=== PATIENT | female | born 1980 | race Caucasian/White ===

== ENCOUNTER 2018-01-12 11:37 | Emergency (ER) | payer BC ==
[~2018-01-12] VITALS: Ht 160 cm; Wt 102.1 kg
[~2018-01-12 11:37] MED LIST: BISA-49 PO; DOCU-131 PO; FERR325T18 PO; FERR325T63 PO; IBUP-1223 PO; LYSTEDA; OXYC-302 PO; SIME80TA16 PO
[2018-01-12 11:38] VITALS: BP 118/83
== END 2018-01-12 12:32 | disposition home or self-care (01) ==
LOC: ED 12:15
DX: L02.11 Cutaneous abscess of neck (principal)
CPT/HCPCS: 99283

== ENCOUNTER 2018-02-13 18:47 | Emergency (ER) | payer BC ==
[~2018-02-13] VITALS: Ht 162.6 cm; Wt 103.1 kg
[2018-02-13 18:52] VITALS: BP 130/85
== END 2018-02-13 20:13 | disposition home or self-care (01) ==
LOC: ED 19:45
DX: K08.89 Other specified disorders of teeth and supporting structures (principal); K05.00 Acute gingivitis, plaque induced; Z88.5 Allergy status to narcotic agent
CPT/HCPCS: 99283

== ENCOUNTER 2018-08-21 12:05 | Emergency (ER) | payer OTHER, BC ==
[~2018-08-21] VITALS: Ht 162.6 cm; Wt 103.1 kg
[2018-08-21 12:28] VITALS: BP 108/84
[2018-08-21] MEDS ORDERED: SILVER SULF. CRM 1% , 25GM ONE (12:50)
[2018-08-21] MEDS ORDERED: SILVER SULF. CRM 1% , 25GM TP ONE (13:00)
== END 2018-08-21 13:30 | disposition home or self-care (01) ==
LOC: ED 13:10
DX: T22.111A Burn of first degree of right forearm, initial encounter (principal); T23.161A Burn of first degree of back of right hand, initial encounter; T31.0 Burns involving less than 10% of body surface; X10.2XXA Contact with fats and cooking oils, initial encounter; Y93.89 Activity, other specified; Y99.0 Civilian activity done for income or pay; Y92.69 Other specified industrial and construction area as the place of occurrence of the external cause
CPT/HCPCS: 99283

== ENCOUNTER 2019-01-19 11:02 | Emergency (ER) | payer BC, OTHER ==
[~2019-01-19] VITALS: Ht 160 cm; Wt 104.0 kg
[2019-01-19 11:03] VITALS: BP 128/74
== END 2019-01-19 12:03 | disposition home or self-care (01) ==
LOC: ED 11:55
DX: G89.29 Other chronic pain (principal); M75.31 Calcific tendinitis of right shoulder; R05 Cough
CPT/HCPCS: 71046; 99283

== ENCOUNTER 2019-01-21 21:08 | Emergency (ER) | payer OTHER ==
[~2019-01-21] VITALS: Ht 160 cm; Wt 105.6 kg
[2019-01-21 21:15] VITALS: BP 134/85
== END 2019-01-21 22:27 | disposition home or self-care (01) ==
LOC: ED 22:12
DX: M75.31 Calcific tendinitis of right shoulder (principal); Z90.710 Acquired absence of both cervix and uterus
CPT/HCPCS: 99283

== ENCOUNTER 2019-06-15 13:31 | Emergency (ER) | payer SELFPAY ==
[~2019-06-15] VITALS: Ht 162.6 cm; Wt 109.0 kg
[2019-06-15 15:17] VITALS: BP 111/68
== END 2019-06-15 15:19 | disposition home or self-care (01) ==
LOC: ED 15:08
DX: R07.89 Other chest pain (principal); Z90.710 Acquired absence of both cervix and uterus
CPT/HCPCS: 36415; 71045; 80053; 83690; 84484; 85025; 93005; 99284

== ENCOUNTER 2019-08-25 20:19 | Emergency (ER) | payer MEDICAID ==
[~2019-08-25] VITALS: Ht 162.6 cm; Wt 100.0 kg
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
[2019-08-25] MEDS ORDERED: IBUPROFEN 600 MG TABLET ONE (20:43)
[2019-08-25] MEDS ORDERED: METHOCARBAMOL 500 MG TABLET ONE (20:43)
[2019-08-25] MEDS ORDERED: IBUPROFEN 200 MG TABLET PO ONE (21:00)
[2019-08-25] MEDS ORDERED: METHOCARBAMOL 500 MG TABLET PO ONE (21:00)
--- NOTE | 2019-08-25 21:02 | NUR ---
C-COLLAR REMOVED BY DR. FANG AT TIME OF ASSESSMENT. PER DR. FANG, OK TO LEAVE OFF.
--- NOTE | 2019-08-25 21:02 | NUR ---
PT MEDICATED PER MAR. TOLERATED WELL.
--- NOTE | 2019-08-25 21:10 | NUR ---
PT RESTING IN ROOM WITH FAMILY AT BS AND LIGHTS DIMMED. WARM BLANKET PROVIDED. VSS. NO NEEDS EXPRESSED. CALL LIGHT WITHIN REACH. ALL RESULTS BACK AT THIS TIME CHART UP FOR RECHECK.
[2019-08-25 21:11] VITALS: BP 143/89
--- NOTE | 2019-08-25 21:15 | NUR ---
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
== END 2019-08-25 21:40 | disposition home or self-care (01) ==
LOC: ED 21:34
DX: S16.1XXA Strain of muscle, fascia and tendon at neck level, initial encounter (principal); Z90.710 Acquired absence of both cervix and uterus; V49.9XXA Car occupant (driver) (passenger) injured in unspecified traffic accident, initial encounter; Y93.89 Activity, other specified; Y92.410 Unspecified street and highway as the place of occurrence of the external cause; Y99.8 Other external cause status
CPT/HCPCS: 72125; 99284

== ENCOUNTER 2020-03-13 08:58 | Day surgery (SDC) | payer MEDICAID ==
[~2020-03-13] VITALS: Ht 160 cm; Wt 104.0 kg
[2020-03-13] MEDS ORDERED: SODIUM CHLORIDE 0.9% 1,000 ML IV ONE ×2 (10:09→14:19)
[2020-03-13] MEDS ORDERED: HYDROmorphone 2 MG/ML, 1ML ONE ×2 (10:14→12:42)
[2020-03-13] MEDS ORDERED: ONDANSETRON 2MG/ML, 2ML ONE ×4 (10:14→15:06)
[2020-03-13] MEDS: HYDROmorphone 2 MG/ML, 1ML IVPush PRN ×2 (10:25→12:53)
--- NOTE | 2020-03-13 10:25 | NUR ---
c/o ruq pain intermittent w/ nausea and vomiting since mon. 7 yrs ago was told to get gall bladder out. denies recent etoh/fatty diet. piv est labs sent ua sent meds per dec. call diaz in reach. as
[2020-03-13] MEDS ORDERED: SODIUM CHLORIDE 0.9% 1,000ML IVBOLUS ONE (10:30)
[2020-03-13] MEDS ORDERED: ONDANSETRON 2MG/ML, 2ML IVPush ONE ×3 (10:30→14:30)
[2020-03-13] MEDS ORDERED: SODIUM CHLORIDE FLUSH 10ML SYR IVF ONE (10:30)
[2020-03-13 10:32] LABS: BASOPHILS # (AUTO) 0.06 x10^3/uL (0-0.1); BASOPHILS % (AUTO) 1 % (0-1); EOSINOPHILS % (AUTO) 1 % (1-7); LYMPHOCYTES # (AUTO) 1.58 x10^3/uL (1-3.4); LYMPHOCYTES % (AUTO) 17 % (22-44); MD NO; MEAN CORPUSCULAR HEMOGLOBIN 26.4 pg (27.0-34.8); MEAN CORPUSCULAR HGB CONC 32.2 g/dL (32.4-35.8); MEAN CORPUSCULAR VOLUME 81.9 fL (80-100); MEAN PLATELET VOLUME 8.7 fL (7.4-10.4); MONOCYTES # (AUTO) 0.33 x10^3/uL (0.2-0.8); MONOCYTES % (AUTO) 4 % (2-9); NEUTROPHILS # (AUTO) 7.19 x10^3/uL (1.8-6.8); NEUTROPHILS % (AUTO) 78 % (42-75); PLATELET COUNT 301 x10^3/uL (130-400); RED BLOOD COUNT 5.54 x10^6/uL (3.82-5.3); RED CELL DISTRIBUTION WIDTH 15.9 % (9.6-15.2)
[2020-03-13 10:37] LABS: MICROSCOPIC INDICATED
[2020-03-13 10:44] LABS: ALANINE AMINOTRANSFERASE 75 U/L (12-78); ALBUMIN 3.8 g/dL (3.4-5.0); ANION GAP 7 mmol/L (5-15); CALCIUM 10.4 mg/dL (8.5-10.1); CHLORIDE 105 mmol/L (98-107); CREATININE 1.21 mg/dL (0.55-1.02)
[2020-03-13 10:48] LABS: ALKALINE PHOSPHATASE 118 U/L (45-117); TOTAL PROTEIN 9.2 g/dL (6.4-8.2)
--- NOTE | 2020-03-13 11:20 | NUR ---
pt resting on stretcher pain improved us pending. as
--- NOTE | 2020-03-13 11:34 | NUR ---
claribel in room for update. remedicated for nausea. gall stones on us. call diaz in reach. plan pending, need to control pt nausea. as
[2020-03-13] MEDS ORDERED: PROMETHAZINE 25 MG/ML, 1ML ONE (11:53)
[2020-03-13] MEDS ORDERED: PROMETHAZINE 25 MG/ML, 1ML IM ONE (12:00)
--- NOTE | 2020-03-13 12:06 | NUR ---
pt shaking, c/o pain/nausea, refusing pain meds. given phenergan im and ice pack. sister at bedside, updated. as
[2020-03-13] MEDS ORDERED: METOCLOPRAMIDE 5 MG/ML, 2ML ONE (12:26)
[2020-03-13] MEDS ORDERED: METOCLOPRAMIDE 5 MG/ML, 2ML IVPush ONE (12:30)
--- NOTE | 2020-03-13 12:53 | NUR ---
pt sts nausea slightly improved, 2nd dose dilaudid. as
--- NOTE | 2020-03-13 13:14 | NUR ---
discussed poc w/ dr sanford. pt resting calmly on stretcher after dilaudid. no vomiting noted. pt has had the same emesis bag throughout stay, is just dry heaving loudly. sister at bedside. poc at moment: let pt rest after pain meds then have claribel discuss poc w/ pt. as
--- NOTE | 2020-03-13 13:52 | NUR ---
report to venita morales rn. as
--- NOTE | 2020-03-13 13:54 | NUR ---
REPORT FROM TRISTEN JOHNSON. PT CARE RESPONSIBILITIES ASSUMED.
--- NOTE | 2020-03-13 14:07 | NUR ---
PT STATES SHE IS STILL NAUSEOUS AND IN PAIN. ERP MADE AWARE. PT DENIES ANY FURTHER NEEDS OR CONCERNS AT THIS TIME, CALL LIGHT IN REACH.
[2020-03-13] MEDS ORDERED: SODIUM CHLORIDE FLUSH 10ML SYR IVF PRN (14:30)
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
[2020-03-13] MEDS ORDERED: CHLORHEXIDINE 15 ML UDC ONE (14:54)
[2020-03-13] MEDS ORDERED: BUPIVACAINE/PF-EPI 0.5% 1:200K ONE (14:54)
[2020-03-13] MEDS ORDERED: MIDAZOLAM 1 MG/ML, 2ML ONE (14:59)
[2020-03-13] MEDS ORDERED: FENTANYL PF 250 MCG/5ML ONE (14:59)
[2020-03-13] MEDS ORDERED: ROCURONIUM 10MG/ML,5ML ONE (15:00)
[2020-03-13] MEDS ORDERED: SUCCINYLCHOLINE 20 MG/ML, 10ML ONE (15:00)
[2020-03-13] MEDS ORDERED: PROPOFOL 10 MG/ML, 20ML ONE (15:00)
[2020-03-13] MEDS ORDERED: DEXAMETHASONE 4 MG/ML, 1ML ONE (15:06)
[2020-03-13] MEDS ORDERED: CEFOTETAN 2 GM ONE (15:06)
[2020-03-13] MEDS ORDERED: BUPIVACAINE/PF-EPI 0.5% 1:200K INFIL ONE (15:29)
[2020-03-13] MEDS ORDERED: DIAZEPAM 5 MG/ML, 2ML IVPush PRN (15:30)
[2020-03-13] MEDS ORDERED: LABETALOL 5MG/ML, 20ML IV PRN (15:30)
[2020-03-13] MEDS ORDERED: MEPERIDINE/PF 25MG/0.5ML IVPush PRN (15:30)
[2020-03-13] MEDS ORDERED: OXYcodone 5 MG/5 ML ORAL.SOL UDC PO PRN (15:30)
[2020-03-13] MEDS ORDERED: FENTANYL PF 100 MCG/2ML IV PRN (15:30)
[2020-03-13] MEDS ORDERED: hydrALAzine 20 MG/ML, 1ML IV PRN (15:30)
[2020-03-13] MEDS ORDERED: DIPHENHYDRAMINE 50 MG/ML, 1ML IVPush PRN (15:30)
[2020-03-13] MEDS ORDERED: ONDANSETRON 2MG/ML, 2ML IVPush PRN (15:30)
[2020-03-13] MEDS ORDERED: MIDAZOLAM 1 MG/ML, 2ML IV PRN (15:30)
[2020-03-13] MEDS ORDERED: PROMETHAZINE 12.5 MG SUPP PR PRN (15:30)
[2020-03-13] MEDS ORDERED: EPHEDRINE 50 MG/ML, 1ML IVPush PRN (15:30)
[2020-03-13] MEDS ORDERED: HYDROmorphone 1 MG/ML, 1ML INJ IVPush PRN (15:30)
[2020-03-13] MEDS ORDERED: PROMETHAZINE 25 MG/ML, 1ML IVPush PRN (15:30)
[2020-03-13] MEDS ORDERED: ALBUTEROL SULFATE 2.5 MG/3 ML NPPB PRN (15:30)
[2020-03-13] MEDS ORDERED: SUGAMMADEX 200 MG/2 ML IVPush ONE (15:37)
[2020-03-13] MEDS ORDERED: FENTANYL PF 100 MCG/2ML ONE (15:40)
[2020-03-13] MEDS ORDERED: MEPERIDINE/PF 100 MG/ML ONE (16:23)
[2020-03-13] MEDS ORDERED: OXYcodone 5 MG/5 ML ORAL.SOL UDC ONE (16:24)
[2020-03-13 17:28] VITALS: BP 123/84
[2020-03-13 17:33] VITALS: BP 123/84
[2020-03-13] MEDS ORDERED: OXYC-302 PO (18:13)
[2020-03-13] MEDS ORDERED: POLY17PO5 PO (18:14)
[2020-03-13] MEDS ORDERED: ONDA4TAB7 PO (18:16)
[2020-03-13 19:00] VITALS: BP 129/84
[2020-03-13 19:50] VITALS: BP 127/82
== END 2020-03-13 19:55 | disposition home or self-care (01) ==
LOC: OR 14:24 → EDSTATUS 14:30 → UNDOADMIN 14:48 → EDIP 14:48 → 4NE 17:35 → EDIP 17:35 → OR 19:55 → UNDODISIN 19:55
PROVIDERS: ATTEND Emergency Medicine
DX: K80.12 Calculus of gallbladder with acute and chronic cholecystitis without obstruction (principal); E66.01 Morbid (severe) obesity due to excess calories; Z88.5 Allergy status to narcotic agent; Z90.711 Acquired absence of uterus with remaining cervical stump
CPT/HCPCS: 36415; 47562; 76700; 80053; 81001; 82962; 83690; 84703; 85025; 87086; 88304; 99285; J0330; J1100; J1170; J2175; J2250; J2405; J2550; J2704; J2765; J3010; J3490; J7030; G0378

== ENCOUNTER 2021-06-29 11:30 | Emergency (ER) | payer MEDICAID, OTHER ==
[~2021-06-29] VITALS: Ht 160 cm; Wt 99.3 kg
[~2021-06-29 11:30] MED LIST changes: +ONDA4TAB7 PO; -OXYC-302 PO; +OXYC1TAB12 PO; +POLY17PO5 PO
[2021-06-29 11:34] VITALS: BP 145/89
[2021-06-29] MEDS ORDERED: KETOROLAC 30 MG/1 ML IM ONE (13:00)
--- NOTE | 2021-06-29 13:01 | NUR ---
LIBRARY INFORMATION TECHNICIAN: PT TO ROOM FROM CHRISTIANO RIVERO
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
[2021-06-29] MEDS ORDERED: KETOROLAC 30 MG/1 ML ONE (13:25)
--- NOTE | 2021-06-29 13:52 | NUR ---
RECEIVED REPORT FROM SHARONDA RAMON. TRANSFER OF CARE.
--- NOTE | 2021-06-29 14:08 | NUR ---
Patient/Caregiver given discharge instructions and they have confirmed that they understand the instructions. Patient ambulatory with steady gait. NAD, all questions answered appropriately, denies additional needs at this time. No personal belongings left in room after discharge.
== END 2021-06-29 14:10 | disposition home or self-care (01) ==
LOC: ED 13:45
DX: M75.31 Calcific tendinitis of right shoulder (principal)
CPT/HCPCS: 73030; 96372; 99283; J1885